=== PATIENT | male | born 1995 | race Caucasian/White ===

== ENCOUNTER 2020-07-23 08:19 | Emergency (ER) | payer BC ==
--- NOTE | 2020-07-23 08:35 | EDM.PDOC ---
ED HPI GENERAL MEDICAL PROBLEM - General Chief Complaint: ENT Problem Stated Complaint: TONSILLITIS Time Seen by Provider: 07/23/20 08:27 Source of Information: Reports: Patient History Limitations: Reports: No Limitations - History of Present Illness INITIAL COMMENTS - FREE TEXT/NARRATIVE: Patient presents with a few days of worsening throat pain, pain with swallowing, and non-productive cough. Patient denies fevers, chills, covid exposure. H/o recurrent tonsillitis. - Related Data Allergies Allergy/AdvReac Type Severity Reaction Status Date / Time No Known Allergies Allergy Verified 07/23/20 08:50 Home Meds: Home Meds . [No Known Home Meds] 07/23/20 [History] ED ROS ENT - Review of Systems Review Of Systems: Comprehensive ROS is negative, except as noted in HPI. ED EXAM, ENT - Physical Exam Exam: See Below Exam Limited By: No Limitations General Appearance: Alert, WD/WN, No Apparent Distress Ears: Normal External Exam Nose: Normal Inspection Mouth/Throat: Normal Inspection Head: Atraumatic, Normocephalic Neck: Normal Inspection Respiratory/Chest: No Respiratory Distress, Lungs Clear, Normal Breath Sounds, No Accessory Muscle Use Cardiovascular: Normal Peripheral Pulses, Regular Rate, Rhythm Extremities: Normal Inspection Neurological: Alert Psychiatric: Normal Affect, Normal Mood Skin: Warm, Dry, Intact Course - Vital Signs Last Recorded V/S: Last Vital Signs Temp 97.2 F 07/23/20 08:48 Pulse 77 07/23/20 08:48 Resp 18 07/23/20 08:48 BP 151/91 H 07/23/20 08:48 Pulse Ox 96 07/23/20 08:48 - Orders/Labs/Meds Orders: Active Orders 24 hr Category Date Time Status Penicillin G Benzathine [Bicillin L-A] Med 07/23/20 09:01 Once 1.2 millunits IM ONETIME ONE - Re-Assessments/Exams Free Text/Narrative Re-Assessment/Exam: 07/23/20 09:03 Will treat for presumptive streptococcal pharyngitis. Patient plans to f/u with ENT doctor when he is back home in [place] for recurrent tonsillitis. Departure - Departure Time of Disposition: 09:04 Disposition: Home, Self-Care 01 Condition: Good Clinical Impression: Tonsillitis - Discharge Information Instructions: Tonsillitis Forms: ED Department Discharge Additional Instructions: The following information is given to patients seen in the emergency department who are being discharged to home. This information is to outline your options for follow-up care. We provide all patients seen in our emergency department with a follow-up referral. The need for follow-up, as well as the timing and circumstances, are variable depending upon the specifics of your emergency department visit. If you don't have a primary care physician on staff, we will provide you with a referral. We always advise you to contact your personal physician following an emergency department visit to inform them of the circumstance of the visit and for follow-up with them and/or the need for any referrals to a consulting specialist. The emergency department will also refer you to a specialist when appropriate. This referral assures that you have the opportunity for follow-up care with a specialist. All of these measure are taken in an effort to provide you with optimal care, which includes your follow-up. Under all circumstances we always encourage you to contact your private physician who remains a resource for coordinating your care. When calling for follow-up care, please make the office aware that this follow-up is from your recent emergency room visit. If for any reason you are refused follow-up, please contact the [facility] Emergency Department at and asked to speak to the emergency department charge nurse. Please follow up with your primary care physician. If you do not have a primary care physician, see below: [facility] [address] [place] [id number] [facility] [address] [place] [id number] Sepsis Event Note (ED) - Focused Exam Vital Signs: Vital Signs Temp Pulse Resp BP Pulse Ox 07/23/20 08:48 97.2 F 77 18 151/91 H 96 - My Orders Last 24 Hours: My Active Orders 07/23/20 09:01 Penicillin G Benzathine [Bicillin L-A] 1.2 millunits IM ONETIME ONE - Assessment/Plan Last 24 Hours: My Active Orders 07/23/20 09:01 Penicillin G Benzathine [Bicillin L-A] 1.2 millunits IM ONETIME ONE
[2020-07-23] MEDS ORDERED: Penicillin G Benzathine 1,200,000 Units/2 ML Syringe IM ONE (09:01)
[2020-07-23] MEDS ORDERED: Dexamethasone 4 MG Tab PO ONE (09:14)
== END 2020-07-23 09:58 | disposition home or self-care (01) ==
LOC: MW.ED 08:19
DX: J03.90 Acute tonsillitis, unspecified (principal)
CPT/HCPCS: 96372; 99283; J0561; J8540; 99282